=== PATIENT | female | born 1990 | race Caucasian/White ===

== ENCOUNTER 2020-10-20 12:26 | Emergency (ER) | payer MEDICAID ==
[~2020-10-20] VITALS: Ht 157.5 cm; Wt 60.9 kg
[2020-10-20 12:59] VITALS: BP 123/86
--- NOTE | 2020-10-20 13:26 | NUR ---
PATIENT ELOPED WHEN TECH BROUGHT SCRUBS TO GET CHANGED, TECH WALKED OUT TO GET SECURITY AND SHE LEFT THROUGH THE LOBBY.
--- NOTE | 2020-10-20 13:30 | NUR ---
Humberto notified and description given
[2020-10-20 13:36] LABS: URINE AMPHETAMINE SCREEN POSITIVE (Neg); URINE BARBITUATE SCREEN NEGATIVE (Neg); URINE BENZODIAZEPINES SCREEN NEGATIVE (Neg); URINE CANNABINOID SCREEN POSITIVE (Neg); URINE COCAINE SCREEN NEGATIVE (Neg); URINE HCG NEGATIVE (NEG); URINE METHADONE SCREEN NEGATIVE (Neg); URINE OPIATE SCREEN NEGATIVE (Neg); URINE PHENCYCLIDINE SCREEN NEGATIVE (Neg)
[2020-10-20 13:42] LABS: BASOPHILS # (AUTO) 0.1 X10'3 (0-0.2); BASOPHILS % (AUTO) 1.5 % (0-1); EOSINOPHILS # (AUTO) 0.4 X10'3 (0-0.9); EOSINOPHILS % (AUTO) 6.1 % (0-6); HEMATOCRIT 41.1 % (35.0-45.0); HEMOGLOBIN 13.8 g/dl (12.0-16.0); LYMPHOCYTES # (AUTO) 1.9 X10'3 (1.1-4.8); LYMPHOCYTES % (AUTO) 26.3 % (21-51); MEAN CORPUSCULAR HEMOGLOBIN 31.1 PG (27.0-31.0); MEAN CORPUSCULAR HGB CONC 33.7 g/dL (33.0-36.5); MEAN CORPUSCULAR VOLUME 92.3 FL (78-98); MEAN PLATELET VOLUME 8.6 FL (7.4-10.4); MONOCYTES # (AUTO) 0.6 X10'3 (0-0.9); MONOCYTES % (AUTO) 8.3 % (2-12); NEUTROPHILS # (AUTO) 4.3 X10'3 (1.8-7.7); NEUTROPHILS % (AUTO) 57.8 % (42-75); PLATELET COUNT 271 X10'3 (140-440); RED BLOOD COUNT 4.45 X10'6 (4.20-5.60); RED CELL DISTRIBUTION WIDTH 13.3 % (11.5-14.5); WHITE BLOOD COUNT 7.4 X10'3 (4.5-11.0)
[2020-10-20 13:56] LABS: ALANINE AMINOTRANSFERASE 32 U/L (12-78); ALBUMIN/GLOBULIN RATIO 1.1 (1.1-1.5); ALKALINE PHOSPHATASE 82 IU/L (46-116); ANION GAP 7 (8-16); ASPARTATE AMINO TRANSFERASE 26 U/L (10-37); BILIRUBIN,TOTAL 1.6 MG/DL (0.1-1.0); BLOOD UREA NITROGEN 22 MG/DL (7-18); BUN/CREATININE RATIO 28.2 (6.6-38.0); CALCIUM 8.7 MG/DL (8.5-10.1); CHLORIDE 107 MMOL/L (99-107); CREATININE 0.78 MG/DL (0.40-0.90); ETHANOL < 0.010 GM/DL (0.0-0.010); GLUCOSE 90 MG/DL (70-104); SODIUM 143 MMOL/L (135-145); TOTAL CARBON DIOXIDE 28.6 MMOL/L (24-32); TOTAL PROTEIN 7.6 G/DL (6.4-8.2); eGFR 88 ML/MIN
[2020-10-20 13:59] LABS: POTASSIUM 2.9 MMOL/L (3.5-5.1)
== END 2020-10-20 13:35 | disposition left against medical advice (07) ==
LOC: ER 12:28
DX: R45.851 Suicidal ideations (principal); F12.90 Cannabis use, unspecified, uncomplicated
CPT/HCPCS: 36415; 80053; 80305; 80320; 81025; 85025; 99285

== ENCOUNTER 2024-06-17 08:24 | Emergency (ER) | payer OTHER, MEDICAID ==
[~2024-06-17] VITALS: Ht 157.5 cm; Wt 51.2 kg
[2024-06-17 08:36] VITALS: BP 114/88; PULSE 92; O2SAT 100
[2024-06-17] MEDS: azithromycin 250mg tablet PO ONE (11:51)
[2024-06-17] MEDS: TINIDAZOLE 500 MG TABLET PO ONE (11:51)
[2024-06-17] MEDS: CefTRIAXone 500MG IM Kit w/LIDOcaine (for pt below or = to 150kg) IM ONE (11:51)
[2024-06-17] MEDS ORDERED: DOXY100C43 PO (12:04)
[2024-06-17 12:05] VITALS: RESP 16
[2024-06-17] MEDS: ketorolac trometh 15mg/ml vial 15 MG/ML ML IM ONE (12:05)
[2024-06-17 13:14] VITALS: TEMP 97
== END 2024-06-17 12:20 | disposition home or self-care (01) ==
LOC: EEVIPCON 08:25 → ER 08:25
DX: T74.21XA Adult sexual abuse, confirmed, initial encounter (principal); L03.031 Cellulitis of right toe; F12.90 Cannabis use, unspecified, uncomplicated
CPT/HCPCS: 73630; 96372; 99284; J0696; J1885